=== PATIENT | male | born 1970 | race African-American/Black ===

== ENCOUNTER 2017-02-09 18:52 | Emergency (ER) | payer BC, MEDICAID ==
--- NOTE | 2017-02-09 20:28 | ER Document Report ---
HPI - HPI Onset/Duration: Gradual Quality of pain: Achy Pain Level: 5 Context: 46 yo male c/o dental pain to right upper and lower teeth x several days. pt reports he has a dental appointment at 9am tomorrow morning, but is very uncomfortable right now and worried he wont be able to rest tonight. no gum swelling, no fever, no facial swelling Associated Symptoms: None Exacerbated by: Food Relieved by: Denies Similar symptoms previously: Yes Recently seen / treated by doctor: No - has appointment - ROS Systems Reviewed and Negative: Yes All other systems reviewed and negative - DERM Skin Color: Normal, [place] Past Medical History - General Information source: Patient - Social History Smoking Status: Smoker,Current Status Unk Frequency of alcohol use: None Drug Abuse: None Lives with: Alone Family History: Reviewed & Not Pertinent Endocrine Medical History: Reports: Hx Diabetes Mellitus Type 2 Renal/ Medical History: Denies: Hx Peritoneal Dialysis - Immunizations Hx Diphtheria, Pertussis, Tetanus Vaccination: Yes Vertical Provider Document - CONSTITUTIONAL Agree With Documented VS: Yes Exam Limitations: No Limitations General Appearance: WD/WN, No Apparent Distress - INFECTION CONTROL TRAVEL OUTSIDE OF THE [place] IN LAST 30 DAYS: No - HEENT HEENT: Atraumatic, PERRLA Notes: extensive decay, no gingival edema noted - NECK Neck: Normal Inspection, Supple - RESPIRATORY Respiratory: Breath Sounds Normal, No Respiratory Distress O2 Sat by Pulse Oximetry: 98 - CARDIOVASCULAR Cardiovascular: Regular Rate, Regular Rhythm - NEURO Level of Consciousness: Awake, Alert, Appropriate Course - Vital Signs Vital signs: Temp Pulse Resp BP Pulse Ox 98.1 F 79 16 151/93 H 98 02/09/17 18:55 02/09/17 18:55 02/09/17 18:55 02/09/17 18:55 02/09/17 18:55 Discharge - Discharge Clinical Impression: Pain, dental Condition: Stable Disposition: HOME, SELF-CARE Instructions: Toothache ([facility]), Oral Narcotic Medication ([facility]) Additional Instructions: Take meds as prescribed - Dispense Pack Vicodin - Follow up with dental tomorrow as scheduled
[2017-02-09 20:55] VITALS: BP 148/80
[2017-02-09] MEDS ORDERED: HYDROCODONE/ACETAMINOPHEN 5-325 MG 6 TAB/DSPK PO SCH (22:00)
== END 2017-02-09 20:50 | disposition home or self-care (01) ==
LOC: ER 18:52
DX: K08.9 Disorder of teeth and supporting structures, unspecified (principal); E11.9 Type 2 diabetes mellitus without complications
CPT/HCPCS: 99282

== ENCOUNTER 2017-09-15 03:17 | Observation (INO) | payer BC ==
[2017-09-15] MEDS ORDERED: ASPIRIN 325 MG TABLET PO ONE (03:36)
[2017-09-15] MEDS ORDERED: ASPIRIN 81 MG TABLET, CHEWABLE PO ONE (03:45)
--- NOTE | 2017-09-15 03:45 | ER Document Report ---
ED Cardiac - General Chief Complaint: Chest Pain Stated Complaint: CHEST PAIN,ARM NUMBNESS Time Seen by Provider: 09/15/17 03:45 Mode of Arrival: Ambulatory Information source: Patient Notes: 47-year-old male had to leave work because he was concerned about the constant heavy dull ache left sided chest pain that he states is above the bones. Onset 299 when he got up to get ready for work. Also has left mandible pain, left bicep pain. He thought at first that it was due to the heavy lifting at work. TRAVEL OUTSIDE OF THE [place] IN LAST 30 DAYS: No - Related Data Allergies/Adverse Reactions: No Known Allergies Allergy (Unverified 01/19/14 15:10) Past Medical History - General Information source: Patient - Social History Smoking Status: Never Smoker Frequency of alcohol use: None Drug Abuse: None Lives with: Spouse/Significant other Family History: Reviewed & Not Pertinent Endocrine Medical History: Reports: Hx Diabetes Mellitus Type 2 Renal/ Medical History: Denies: Hx Peritoneal Dialysis Surgical Hx: Negative - Immunizations Hx Diphtheria, Pertussis, Tetanus Vaccination: Yes Review of Systems - Review of Systems Constitutional: No symptoms reported EENT: No symptoms reported Cardiovascular: See HPI Respiratory: No symptoms reported Gastrointestinal: No symptoms reported Genitourinary: No symptoms reported Male Genitourinary: No symptoms reported Musculoskeletal: No symptoms reported Skin: No symptoms reported Hematologic/Lymphatic: No symptoms reported Neurological/Psychological: No symptoms reported Physical Exam - Vital signs Vitals: Temp Pulse Resp BP Pulse Ox 97.9 F 94 18 141/91 H 98 09/15/17 03:17 09/15/17 03:17 09/15/17 03:17 09/15/17 03:17 09/15/17 03:17 Interpretation: Normal - General General appearance: Appears well, Alert In distress: None - HEENT Head: Normocephalic, Atraumatic Eyes: Normal Conjunctiva: Normal Pupils: PERRL Mucous membranes: Normal Pharynx: Normal Neck: Supple. No: Lymphadenopathy - Respiratory Respiratory status: No respiratory distress Chest status: Nontender Breath sounds: Normal Chest palpation: Normal - Cardiovascular Rhythm: Regular Heart sounds: Normal auscultation Murmur: No - Abdominal Inspection: Normal Distension: No distension Bowel sounds: Normal Tenderness: Nontender Organomegaly: No organomegaly - Back Back: Normal, Nontender. No: CVA tenderness - Extremities General upper extremity: Normal inspection, Nontender, Normal color, Normal ROM , Normal temperature General lower extremity: Normal inspection, Nontender, Normal color, Normal ROM , Normal temperature, Normal weight bearing. No: Apurva's sign - Neurological Neuro grossly intact: Yes Cognition: Normal Orientation: AAOx4 [place] Coma Scale Eye Opening: Spontaneous [place] Coma Scale Verbal: Oriented [place] Coma Scale Motor: Obeys Commands [place] Coma Scale Total: 15 Speech: Normal Motor strength normal: LUE, RUE, LLE, RLE Sensory: Normal - Psychological Associated symptoms: Normal affect, Normal mood - Skin Skin Temperature: Warm Skin Moisture: Dry Skin Color: Normal Skin irregularity: negative: Rash Course - Re-evaluation Re-evalutation: 09/15/17 05:[address] franz who rec. nitroglycerin to see if it stops the pain, would cause more concern for ACS wale. since diabetic. first troponin negative. chest xray negative. 09/15/17 05:30 1 NTG resolved the pain completely, dr. shahid will admit to telemetry observation for chest pain rule out. - Vital Signs Vital signs: Temp Pulse Resp BP Pulse Ox 97.9 F 94 18 142/100 H 98 09/15/17 03:17 09/15/17 03:17 09/15/17 04:31 09/15/17 04:31 09/15/17 04:31 - Laboratory Result Diagrams: 09/15/17 03:50 09/15/17 03:50 Laboratory results interpreted by me: 09/15/17 09/15/17 03:50 03:50 RBC 5.76 H Hgb 13.0 L MCV 70 L MCH 22.6 L Glucose 222 H Creatine Kinase 256 H - EKG Interpretation by Ny EKG shows normal: Sinus rhythm Rate: Normal Discharge - Discharge Clinical Impression: chest pain Diabetes Qualifiers: Diabetes mellitus type: type 2 Diabetes mellitus complication status: with unspecified complications Diabetes mellitus long-term insulin use: without long-term use Qualified Code(s): E11.8 - Type 2 diabetes mellitus with unspecified complications Hypertension Qualifiers: Hypertension type: unspecified Qualified Code(s): I10 - Essential (primary) hypertension Condition: Good Disposition: ADMITTED OBSERVATION Admitting Provider: Hospitalist Unit Admitted: Telemetry
[2017-09-15 03:59] LABS: ABSOLUTE EOSINOPHILS # (AUTO) 0.2 10^3/uL (0.0-0.6); ABSOLUTE LYMPHOCYTES (AUTO) 2.7 10^3/uL (0.5-4.7); ABSOLUTE MONOCYTES (AUTO) 0.4 10^3/uL (0.1-1.4); ABSOLUTE NEUT (AUTO) 4.3 10^3/uL (1.7-8.2); BASOPHILS % (AUTO) 0.6 % (0-2); HEMATOCRIT 40.5 % (37.9-51.0); HGB HCT DIFFERENCE -1.5; LYMPHOCYTES % (AUTO) 34.9 % (13-45); MEAN CORPUSCULAR HEMOGLOBIN 22.6 pg (27.0-33.4); MEAN CORPUSCULAR HGB CONC 32.1 g/dL (32.0-36.0); MEAN CORPUSCULAR VOLUME 70 fl (80-97); MONOCYTES % (AUTO) 5.9 % (3-13); RED BLOOD COUNT 5.76 10^6/uL (4.35-5.55); RED CELL DISTRIBUTION WIDTH 13.2 % (11.5-14.0); SEGMENTED NEUTROPHILS % (AUTO) 56.6 % (42-78); WHITE BLOOD COUNT 7.6 10^3/uL (4.0-10.5)
--- NOTE | 2017-09-15 04:03 | RADIOLOGY REPORT (SQ) ---
EXAM DESCRIPTION: CHEST SINGLE VIEW COMPLETED DATE/TIME: 09/15/2017 3:55 am REASON FOR STUDY: chest pain COMPARISON: None. EXAM PARAMETERS: NUMBER OF VIEWS: One view. TECHNIQUE: Single frontal radiographic view of the chest acquired. RADIATION DOSE: NA LIMITATIONS: None. FINDINGS: LUNGS AND PLEURA: No consolidation, pneumothorax or pleural effusion. MEDIASTINUM AND HILAR STRUCTURES: No masses. Contour normal. HEART AND VASCULAR STRUCTURES: Heart normal in size. Normal vasculature. BONES: No acute findings. HARDWARE: None in the chest. IMPRESSION: No acute radiographic finding in the chest. TECHNICAL DOCUMENTATION: JOB ID: [id number] 2010 [employer] All Rights Reserved
[2017-09-15 04:17] LABS: ALANINE AMINOTRANSFERASE 39 U/L (21-72); ALBUMIN 4.3 g/dL (3.5-5.0); ALKALINE PHOSPHATASE 105 U/L (38-126); ANION GAP 15 (5-19); ASPARTATE AMINO TRANSFERASE 17 U/L (17-59); BILIRUBIN,DIRECT 0.3 mg/dL (0.0-0.4); BILIRUBIN,TOTAL 0.6 mg/dL (0.2-1.3); BLOOD UREA NITROGEN 18 mg/dL (7-20); CALCIUM 9.6 mg/dL (8.4-10.2); CARBON DIOXIDE 22 mmol/L (22-30); CHLORIDE 103 mmol/L (98-107); CREATINE KINASE 256 U/L (55-170); CREATININE RESULT 0.61 mg/dL (0.52-1.25); GLUCOSE 222 mg/dL (75-110); POTASSIUM 4.4 mmol/L (3.6-5.0); SODIUM 140.4 mmol/L (137-145); TOTAL PROTEIN 7.1 g/dL (6.3-8.2)
[2017-09-15 04:29] LABS: CREATINE KINASE MB 2.49 ng/mL (<4.55)
[2017-09-15 04:30] LABS: TROPONIN I < 0.012 ng/mL
[2017-09-15] MEDS ORDERED: NITROGLYCERIN 0.4 MG/TAB 25 TAB/BOTTLE SL PRN ×2 (04:59→06:09)
[2017-09-15] MEDS ORDERED: MAG HYDROX/AL HYDROX/SIMETH SUSP 30 ML UDCUP PO PRN ×2 (06:09→15:30)
[2017-09-15] MEDS ORDERED: MORPHINE SULFATE 10 MG/ML INJ IV PRN (06:09)
[2017-09-15] MEDS ORDERED: ONDANSETRON HCL INJ/PF 4 MG/2 ML SDV IV PRN ×2 (06:09→15:30)
[2017-09-15] MEDS ORDERED: LANSOPRAZOLE 15 MG TAB.RAP.DR PO ONE (06:09)
[2017-09-15] MEDS ORDERED: GLYBURIDE 5 MG TABLET PO ONE (06:30)
[2017-09-15] MEDS ORDERED: METFORMIN HCL 500 MG TABLET PO ONE (07:00)
--- NOTE | 2017-09-15 07:22 | PDOC H&P ---
History of Present Illness Admission Date/PCP: 09/15/17 05:58 History of Present Illness: SHELLEY BARNES JR is a 47 year old male with past medical history of diabetes mellitus type 2 and hypertension who presents to the emergency department with complaints of chest pain for 24 hours. Patient reports that at approximately 315 on 09/14/2017 he woke for his normal job and felt pressure in his left upper chest radiating to his left arm and jaw. He reports that this pain never went away but it did have a sensation of almost like indigestion. He reports he took some aspirin throughout the day. Nothing seemed to make this pain better or worse. He denied any associated shortness of breath, nausea, vomiting , diaphoresis, or metallic taste in his mouth. Patient reports that he has not had his lisinopril or glyburide for approximately 1 month. There is a questionable improvement with nitroglycerin, but he reports that his pain was actually slightly improved before receiving the nitroglycerin. He is referred to the hospitalist service for evaluation of his chest pain. Past Medical History Cardiac Medical History: Reports: Hypertension Endocrine Medical History: Reports: Diabetes Mellitus Type 2 Past Surgical History Past Surgical History: Reports: None Social History Lives with: Spouse/Significant other Smoking Status: Never Smoker Frequency of Alcohol Use: None Hx Recreational Drug Use: No Hx Prescription Drug Abuse: No - Advance Directive Resuscitation Status: Full Code Surrogate healthcare decision maker:: Laxmi Barnes, Family History Family History: DM, Hypertension, Malignancy Parental Family History Reviewed: Yes Children Family History Reviewed: Yes Sibling(s) Family History Reviewed.: Yes Medication/Allergy Home Medications: Glyburide [Diabeta 5 mg Tablet] 2.5 mg PO BID #30 tablet 01/19/14 Glyburide [Diabeta 5 mg Tablet] 5 mg PO [id number] 01/19/14 Glyburide [Diabeta 5 mg Tablet] 7.5 mg PO QHS 01/19/14 Metformin HCl [Glucophage] 1,000 mg PO BID 01/19/14 Metformin HCl [Glucophage] 1,000 mg PO BID #60 tablet 01/19/14 Allergies/Adverse Reactions: No Known Allergies Allergy (Unverified 01/19/14 15:10) Review of Systems Constitutional: ABSENT: chills, fever(s), headache(s), weight gain, weight loss Eyes: ABSENT: visual disturbances Ears: ABSENT: hearing changes Nose, Mouth, and Throat: PRESENT: mouth pain - Reports toothache on left lower molar Cardiovascular: PRESENT: as per HPI, chest pain. ABSENT: dyspnea on exertion, edema, orthropnea, palpitations Respiratory: ABSENT: cough, dyspnea, hemoptysis, sputum Gastrointestinal: ABSENT: abdominal pain, constipation, diarrhea, hematemesis, hematochezia, melena, nausea, vomiting Genitourinary: ABSENT: dysuria, hematuria Musculoskeletal: ABSENT: joint swelling Integumentary: ABSENT: rash, wounds Neurological: ABSENT: abnormal gait, abnormal speech, confusion, dizziness, focal weakness, syncope Psychiatric: ABSENT: anxiety, depression, homidical ideation, suicidal ideation Endocrine: ABSENT: cold intolerance, heat intolerance, polydipsia, polyuria Hematologic/Lymphatic: ABSENT: easy bleeding, easy bruising Physical Exam Vital Signs: Temp Pulse Resp BP Pulse Ox 97.9 F 94 12 136/104 H 98 09/15/17 03:17 09/15/17 03:17 09/15/17 06:01 09/15/17 06:00 09/15/17 06:01 General appearance: PRESENT: no acute distress, well-developed, well-nourished Head exam: PRESENT: atraumatic, normocephalic Eye exam: PRESENT: conjunctiva pink, EOMI, PERRLA. ABSENT: scleral icterus Ear exam: PRESENT: normal external ear exam Mouth exam: PRESENT: moist, tongue midline, other - Left submandibular adenopathy Teeth exam: PRESENT: dental caries Neck exam: ABSENT: carotid bruit, JVD, lymphadenopathy, thyromegaly Respiratory exam: PRESENT: clear to auscultation mj, symmetrical, unlabored. ABSENT: accessory muscle use, rales, rhonchi, tachypnea, wheezes Cardiovascular exam: PRESENT: RRR, +S1, +S2. ABSENT: diastolic murmur, gallop, rubs, systolic murmur Pulses: PRESENT: normal dorsalis pedis pul Vascular exam: PRESENT: normal capillary refill GI/Abdominal exam: PRESENT: normal bowel sounds, soft. ABSENT: distended, firm , guarding, mass, Silverman's sign, organolmegaly, rebound, rigid, tenderness Rectal exam: PRESENT: deferred Extremities exam: PRESENT: full ROM. ABSENT: calf tenderness, clubbing, pedal edema Neurological exam: PRESENT: alert, awake, oriented to person, oriented to place , oriented to time, oriented to situation, CN II-XII grossly intact. ABSENT: motor sensory deficit Psychiatric exam: PRESENT: appropriate affect, normal mood. ABSENT: homicidal ideation, suicidal ideation Skin exam: PRESENT: dry, intact, warm. ABSENT: cyanosis, rash Results Laboratory Results: 09/15/17 09/15/17 09/15/17 03:50 03:50 03:50 WBC 7.6 Hgb 13.0 L Hct 40.5 MCV 70 L Plt Count 193 Sodium 140.4 Potassium 4.4 Chloride 103 Carbon Dioxide 22 Anion Gap 15 BUN 18 Creatinine 0.61 Glucose 222 H Calcium 9.6 Total Bilirubin 0.6 Direct Bilirubin 0.3 AST 17 ALT 39 Alkaline Phosphatase 105 Creatine Kinase 256 H Troponin I < 0.012 Total Protein 7.1 Albumin 4.3 Impressions: Chest X-Ray 09/15/17 03:45 IMPRESSION: No acute radiographic finding in the chest. Status: Imported from PACS Assessment & Plan - Diagnosis (1) Chest pain Qualifiers: Chest pain type: unspecified Qualified Code(s): R07.9 - Chest pain, unspecified Is this a current diagnosis for this admission?: Yes Plan: Place patient on telemetry and rule out for acute coronary syndrome. Number metoprolol, aspirin, Lipitor, oxygen, morphine, and nitroglycerin. Serial cardiac enzymes. Obtain stress test. Excellent check FLP and A1c. (2) Dental abscess Is this a current diagnosis for this admission?: Yes Plan: Start patient on Augmentin (3) Diabetes Qualifiers: Diabetes mellitus type: type 2 Diabetes mellitus complication status: with unspecified complications Diabetes mellitus halfway insulin use: without salvage determiner use Qualified Code(s): E11.8 - Type 2 diabetes mellitus with unspecified complications Is this a current diagnosis for this admission?: Yes Plan: Check hemoglobin A1c and start on metformin and glyburide (4) Hypertension Qualifiers: Hypertension type: unspecified Qualified Code(s): I10 - Essential (primary ) hypertension Is this a current diagnosis for this admission?: Yes Plan: Place patient on Cozaar. (5) Obesity (BMI 30.0-34.9) Is this a current diagnosis for this admission?: Yes - Time Time Spent: 30 to 50 Minutes Medications reviewed and adjusted accordingly: Yes Anticipated discharge: Home Within: within 24 hours, within 48 hours - Inpatient Certification Based on my medical assessment, after consideration of the patient's comorbidities, presenting symptoms, or acuity I expect that the services needed warrant INPATIENT care.: No I certify that my determination is in accordance with my understanding of Medicare's requirements for reasonable and necessary INPATIENT services [42 CFR 412.3e].: No Post Hospital Care: D/C Strategy Manager Documentation
--- NOTE | 2017-09-15 07:57 | EKG REPORT ---
SEVERITY:- ABNORMAL ECG - SINUS RHYTHM SUPRAVENTRICULAR BIGEMINY : Confirmed by: Marquez Sapp MD 15-Sep-2017 07:56:41
[2017-09-15] MEDS ORDERED: ASPIRIN 325 MG TABLET, ENT COATED PO SCH (10:00)
[2017-09-15] MEDS: LOSARTAN POTASSIUM 25 MG TABLET PO SCH ×2 (10:25→22:50)
[2017-09-15] MEDS: METOPROLOL TARTRATE 25 MG TABLET PO SCH ×2 (10:26→22:49)
[2017-09-15] MEDS: AMOXICILLIN TR/POT CLAVULANATE 500-125 MG TAB PO SCH ×2 (13:35→22:48)
--- NOTE | 2017-09-15 13:53 | PROGRESS NOTE E ---
Progress Note NAME: SHELLEY BARNES : 1970 AGE: 47Y DATE: 09/15/2017 ROOM: ED15 SUBJECTIVE: The patient is currently lying in bed. He states that he feels better than when he came in. He stated that he had a brief episode of chest pain which did spontaneously resolve. The patient denies any nausea, vomiting or diarrhea, no shortness of breath, no fever or chills. The patient does not voice any other concerns at this time. REVIEW OF SYSTEMS: Rest of review of systems is negative. MEDICATIONS: Medications have been reviewed. OBJECTIVE: GENERAL: The patient is a 47-year-old male who is awake and alert. He is oriented to person, place, time and situation. He is verbal and conversational and does not to appear to be in any acute distress. VITAL SIGNS: Temperature is 97.9, pulse 90, respirations 16, blood pressure 130/91, oxygen saturation is 97% on room air. SKIN: Warm and dry. No rashes, not diaphoretic. HEENT: Pupils are equal, round, reactive to light and accommodation. Conjunctivae pink. No JVP. No stridor is appreciated. The patient does have some left submandibular adenopathy, although the patient is maintaining his own airway, no glottal edema. CVS: Heart is regular. There is no murmur or rub. CHEST: Clear, symmetrical and unlabored. ABDOMEN: Soft, nontender and nondistended. BACK: No CVA tenderness or sacral edema. EXTREMITIES: No clubbing, cyanosis or edema. PSYCHIATRIC: Appropriate affect, pleasant mood. DIAGNOSTIC DATA: Lab values are as follows: Hematology obtained on 09/15/2017: WBC is 7.6, hemoglobin 13.0, hematocrit 40.5, and platelet count is 195,000. Chemistries obtained on 09/15/2016: Iron is 58, TIBC is 327, percent saturation is 18, ferritin is 63.7, B12 is 99, folate is 14.9. IMPRESSION AND PLAN: 1. CHEST PAIN. Given the patient's risk factors, will observe in continuous telemetry, obtain serial cardiac enzymes and continue current meds and follow. 2. DENTAL ABSCESS. Will continue Augmentin. The patient is maintaining his own airway. No evidence of [place] angina. Will follow. 3. DIABETES MELLITUS TYPE 2. Will continue metformin, Glyburide and sliding scale coverage and follow. 4. HYPERTENSION. Will continue the patient's home medications. DISPOSITION: The patient is a FULL CODE. Pending the patient's symptomatology and diagnostic findings, will re-evaluate in the a.m. TIME SPENT: On this followup including assessment, plan, physical examination, patient education, and family meeting is 35 minutes. DICTATING PHYSICIAN: CRISTO ENNIS NP [id number] PHY#: [id number] ID: [id number] JOB#: [id number] ACCT: [id number] cc: >
[2017-09-15] MEDS ORDERED: INFLUENZA ADLT QUAD (36MOS+) 2017-18 VAC 0.5 ML SYR IM PRN (15:08)
[2017-09-15] MEDS: METFORMIN HCL 500 MG TABLET PO SCH (17:21)
[2017-09-15] MEDS: GLYBURIDE 5 MG TABLET PO SCH (17:21)
[2017-09-15] MEDS ORDERED: ATORVASTATIN CALCIUM 40 MG TABLET PO SCH (22:00)
[2017-09-16] MEDS: AMOXICILLIN TR/POT CLAVULANATE 500-125 MG TAB PO SCH ×2 (05:35→13:16)
[2017-09-16 05:49] LABS: CHOLESTEROL 159.26 mg/dL (0-200); Direct HDL 48 mg/dL (>40); TRIGLYCERIDES 119 mg/dL (<150)
[2017-09-16 06:00] LABS: DIRECT LDL 97 mg/dL (<100)
[2017-09-16] MEDS: METFORMIN HCL 500 MG TABLET PO SCH (08:03)
[2017-09-16] MEDS: GLYBURIDE 5 MG TABLET PO SCH (08:04)
[2017-09-16] MEDS ORDERED: ASPIRIN 325 MG TABLET, ENT COATED PO SCH (10:00)
[2017-09-16] MEDS: METOPROLOL TARTRATE 25 MG TABLET PO SCH (10:48)
[2017-09-16] MEDS: LOSARTAN POTASSIUM 25 MG TABLET PO SCH (10:49)
[2017-09-16] MEDS ORDERED: REGADENOSON INJ 0.4 MG/5 ML DISP.SYRIN IV ONE (11:40)
--- NOTE | 2017-09-16 13:17 | PDOC DISCHARGE SUMMARY ---
General - Admit/Disc Date/PCP Admission Date/Primary Care Provider: 09/15/17 05:58 Discharge Date: 09/16/17 - Discharge Diagnosis (1) Chest pain Is this a current diagnosis for this admission?: Yes Summary: This is a 47-year-old male who came to the emergency room with a dull achy substernal chest pain radiating down to his left arm. He underwent a stress test today that was negative per Dr. Storm. He also was found to have an elevated hemoglobin A1c of 9.6. Patient states he was in the process of changing medical providers again and he ran out of his lisinopril and glyburide for greater than 1 month. Troponins were negative. Past medical history includes diabetes type 2, hypertension, glucose mildly elevated during his hospitalization requiring some sliding scale insulin. Patient was placed on telemetry and acute coronary syndrome was ruled out. I have written him a prescription for 30 day supply of all of his medications which include metoprolol, aspirin, Lipitor, metformin, glyburide. - Additional Information Resuscitation Status: Full Code Discharge Diet: Cardiac Discharge Activity: Activity As Tolerated Home Medications: Aspirin [Ecotrin 325 mg EC Tablet] 325 mg PO DAILY #30 tab 09/16/17 Atorvastatin Calcium [Lipitor 40 mg Tablet] 40 mg PO QHS #30 tablet 09/16/17 Flu Vacc [id number] 36Mos Up/Pf [Fluzone Adlt Quad 2703-2520 Vac 0.5 ml Syr] 0.5 ml IM .DISCHARGE PRN #1 disp.syrin 09/16/17 Glyburide [Diabeta 5 mg Tablet] 5 mg PO BIDBS 30 Days #60 tablet 09/16/17 Losartan Potassium [Cozaar 25 mg Tablet] 25 mg PO Q12 #60 tablet 09/16/17 Metformin HCl [Glucophage 500 mg Tablet] 1,000 mg PO BIDACBS #60 tablet Metoprolol Tartrate [Lopressor 25 mg Tablet] 12.5 mg PO Q12 30 Days #60 tablet 09/16/17 History of Present Illness History of Present Illness: SHELLEY BARNES JR is a 47 year old male Physical Exam Vital Signs: Temp Pulse Resp BP Pulse Ox 97.8 F 88 17 119/72 94 09/16/17 04:03 09/16/17 07:00 09/16/17 04:03 09/16/17 04:03 09/16/17 04:03 Intake & Output 09/15/17 09/16/17 09/17/17 06:59 06:59 06:59 Intake Total 1500 Balance 1500 Weight 97.4 kg General appearance: PRESENT: no acute distress Head exam: PRESENT: atraumatic Eye exam: PRESENT: PERRLA Ear exam: PRESENT: normal external ear exam Mouth exam: PRESENT: moist, tongue midline Neck exam: ABSENT: carotid bruit, JVD, lymphadenopathy, thyromegaly Respiratory exam: PRESENT: clear to auscultation mj. ABSENT: rales, rhonchi, wheezes Cardiovascular exam: PRESENT: RRR. ABSENT: diastolic murmur, rubs, systolic murmur Pulses: PRESENT: normal dorsalis pedis pul Vascular exam: PRESENT: normal capillary refill GI/Abdominal exam: PRESENT: normal bowel sounds, soft. ABSENT: distended, guarding, mass, organolmegaly, rebound, tenderness Rectal exam: PRESENT: deferred Extremities exam: PRESENT: full ROM. ABSENT: calf tenderness, clubbing, pedal edema Neurological exam: PRESENT: alert, awake, oriented to person, oriented to place , oriented to time, oriented to situation, CN II-XII grossly intact. ABSENT: motor sensory deficit Psychiatric exam: PRESENT: appropriate affect, normal mood. ABSENT: homicidal ideation, suicidal ideation Skin exam: PRESENT: dry, intact, warm. ABSENT: cyanosis, rash Results Laboratory Results: 09/15/17 09/16/17 07:15 04:21 Transferrin 242 Triglycerides 119 Cholesterol 159.26 LDL Cholesterol Direct 97 VLDL Cholesterol 24.0 HDL Cholesterol 48 09/15/17 09/15/17 09/15/17 07:15 12:45 19:05 Troponin I < 0.012 < 0.012 < 0.012 Impressions: Chest X-Ray 09/15/17 03:45 IMPRESSION: No acute radiographic finding in the chest. Plan Time Spent: Less than 30 Minutes
[2017-09-16 13:18] VITALS: BP 120/81
--- NOTE | 2017-09-17 16:00 | DRAGON STRESS TEST REPORT ---
Intravenous Lexiscan Cardiolite stress test using single photon emmision computerized tomography. Date of procedure: 09/16/2017.Ordering Provider: Dr. Zapata. Patient's status: In Patient Indication: Chest pain. Coronary risk factors: Age, diabetes mellitus, hypertension, and dyslipidemia. Resting EKG: Sinus Rhythm. Within normal limits Stress EKG: No changes of ischemia. The patient had no chest pain or discomfort, and there were no arrhythmias seen. Reason for termination: Protocol. Conclusions: Normal EKG and hemodynamic response to IV Lexiscan. Nuclear data: At rest the patient was given 14.96 millicuries of technetium 99m sestamibi injected intravenously. As per protocol rest non gated SPECT images were obtained. Subsequently the patient was given intravenous Lexiscan at a dose of 0.4 mg in 5 mL intravenously, followed by flush with normal saline. Subsequently the stress dose of 42.2 millicuries of technetium 99m sestamibi was injected intravenously. As per protocol stress gated images were obtained. Nuclear interpretation: Review of images showed that there was a mild perfusion defect involving the basal and mid inferior jessica in both the rest and stress images. This area the this area of the basal and mid inferior wall had normal motion contraction and thickening. Hence this is soft tissue attenuation artifact. The rest of the segments of the myocardium had normal perfusion at rest, and normal perfusion post stress with IV Lexiscan. All segments of the myocardium had normal motion, contraction, and thickening by gated study. T. I D. ratio was normal at 1.00. Computer read rest, and stress left ventricular ejection fraction were 44 %, and 43 %, respectively. Visually both the stress and rest ejection fractions were normal, and greater than 55%. Conclusion: 1. There is no scintigraphic evidence of Lexiscan induced myocardial ischemia. 2. There is no scintigraphic evidence of myocardial infarction/scar. 3. There is a mild soft tissue attenuation artifact involving the basal and mid inferior jessica. Recommendations: Aggressive risk factor modification, and treating the underlying co- morbidities. MTDD
== END 2017-09-16 14:07 | disposition home or self-care (01) ==
LOC: ER 03:17 → EH 05:58 → 5 14:15
PROVIDERS: ADMIT Family Medicine; ATTEND Family Medicine
PROC: 3E0234Z Introduction of Serum, Toxoid and Vaccine into Muscle, Percutaneous Approach (ICD-10-PCS; principal; 2017-09-16)
DX: R07.2 Precordial pain (principal); E11.65 Type 2 diabetes mellitus with hyperglycemia; I10 Essential (primary) hypertension; K04.7 Periapical abscess without sinus; E66.9 Obesity, unspecified; R20.0 Anesthesia of skin; M79.1 Myalgia; Z82.49 Family history of ischemic heart disease and other diseases of the circulatory system; Z83.3 Family history of diabetes mellitus; Z68.31 Body mass index [BMI] 31.0-31.9, adult; Z23 Encounter for immunization
CPT/HCPCS: 93005; 99285; 36415 ×2; 82553; 82607; 82550; 82728; 82746; 83540; 83550; 85025; 85045; 80053; 84484; 84466; 83036; 80061; 93017 ×2; 71010; 78452; 90686; 93010; G0378 ×3; A9500; J2785; J3490 ×4; Q9969

== ENCOUNTER 2020-06-08 04:01 | Emergency (ER) | payer BC ==
[2020-06-08] MEDS ORDERED: FAMOTIDINE INJ/PF 20 MG/2 ML SDV IV ONE (05:14)
[2020-06-08] MEDS ORDERED: DIPHENHYDRAMINE HCL 50 MG/ML VIAL IV ONE (05:14)
[2020-06-08] MEDS ORDERED: METHYLPREDNISOLONE INJ 125 MG/2 ML SDV IV ONE (05:14)
--- NOTE | 2020-06-08 05:38 | ER Document Report ---
Entered by MINISTERIO BUCIO SCRIBE 06/08/20 0519 Acting as scribe for:PJ WATKINS IV, MD ED Allergic Reaction - General Chief Complaint: Allergic Reaction Stated Complaint: ALLERGIC REACTION//THROAT SWELLING Primary Care Provider: AURELIA GARCIA MD [HONORARY] - Follow up as needed Mode of Arrival: Ambulatory Information source: Patient Notes: This 49 year old male patient with no known allergies presents to the ED today with complaints of an allergic reaction that started around 2100 yesterday evening. Patient states that he ran out of his usual Free and Clear laundry detergent and used Gain instead. He reports that his symptoms initially started with an itchy rash to arms, abdomen, and neck which he states he managed with a topical ointment. He states that around 2200, he took a Benadryl tablet and then developed throat swelling and pain x30 minutes later. Denies shortness of breath or cough. . He mentions that his daughter later called and told him that she had a similar reaction (rash) after using the Gain detergent. TRAVEL OUTSIDE OF THE [place] IN LAST 30 DAYS: No - Related Data Allergies/Adverse Reactions: No Known Allergies Allergy (Unverified 01/19/14 15:10) Home Medications: metformin, lisinopril, Past Medical History - General Information source: Patient - Social History Smoking Status: Unknown if Ever Smoked Smoking Education Provided: No Lives with: Spouse/Significant other Family History: Reviewed & Not Pertinent, DM, Hypertension, Malignancy Patient has suicidal ideation: No Patient has homicidal ideation: No - Past Medical History Cardiac Medical History: Reports: Hx Hypertension Endocrine Medical History: Reports: Hx Diabetes Mellitus Type 2 - Immunizations Hx Diphtheria, Pertussis, Tetanus Vaccination: Yes Review of Systems - Review of Systems Constitutional: No symptoms reported EENT: See HPI, Throat pain, Throat swelling Cardiovascular: No symptoms reported Respiratory: See HPI. denies: Short of breath Gastrointestinal: No symptoms reported Genitourinary: No symptoms reported Male Genitourinary: No symptoms reported Musculoskeletal: No symptoms reported Skin: See HPI, Rash Hematologic/Lymphatic: No symptoms reported Neurological/Psychological: No symptoms reported -: Yes All other systems reviewed and negative Physical Exam - Vital signs Vitals: Temp Pulse Resp BP Pulse Ox 98.4 F 81 20 109/76 98 06/08/20 04:05 06/08/20 04:05 06/08/20 04:05 06/08/20 04:05 06/08/20 04:05 Interpretation: Normal - General General appearance: Alert - Talking in full sentences In distress: None - HEENT Head: Normocephalic, Atraumatic Eyes: Normal Pupils: PERRL Pharynx: Erythema - Bilateral tonsillar erythema and edema. No: Uvular edema - or deviation Neck: No: Normal - Welts noted to posterior neck - Respiratory Respiratory status: No respiratory distress Chest status: Nontender Breath sounds: Normal. No: Stridor Chest palpation: Normal - Cardiovascular Rhythm: Regular Heart sounds: Normal auscultation Murmur: No Friction rub: No Gallop: None auscultated - Abdominal Inspection: Other - Welts noted to lower abdomen Distension: No distension Bowel sounds: Normal Tenderness: Nontender - Abdomen soft Organomegaly: No organomegaly - Back Back: Normal, Nontender - Extremities General lower extremity: Normal inspection Hand: Other - Erythema noted to palms of both hands - Neurological Neuro grossly intact: Yes Orientation: AAOx4 [place] Coma Scale Eye Opening: Spontaneous Ro Coma Scale Verbal: Oriented [place] Coma Scale Motor: Obeys Commands Ro Coma Scale Total: 15 - Psychological Associated symptoms: Normal affect, Normal mood - Skin Skin irregularity: Erythema - palms of hands bilaterally, other - Welts noted to abdomen and posterior neck Course - Re-evaluation Re-evalutation: 06/08/20 06:00 Patient states he is feeling better. Patient states his throat feels less swollen, his itching is resolved as well. Patient's rash also appears to be resolving. All questions were answered prior to discharge. Emergency signs and symptoms, reasons to return to the emergency department discussed with patient. - Vital Signs Vital signs: Temp Pulse Resp BP Pulse Ox 98.4 F 81 21 H 120/91 H 100 06/08/20 04:05 06/08/20 04:05 06/08/20 05:14 06/08/20 05:13 06/08/20 05:14 Discharge - Discharge Clinical Impression: Acute allergic reaction Qualifiers: Encounter type: initial encounter Qualified Code(s): T78.40XA - Allergy, unspecified, initial encounter Condition: Stable Disposition: HOME, SELF-CARE Additional Instructions: Return to the Emergency Department without delay if any worse. HOME CARE INSTRUCTIONS & INFORMATION: Thank you for choosing us for your medical needs. We hope you're satisfied with the care you received. After you leave, you must properly care for your problem and, at the same time, observe its progress. Any condition can change. Some illnesses can change rapidly over hours or days. If your condition worsens, return to the Emergency Department or see your physician promptly. ABOUT YOUR X-RAYS AND EKG'S: If you had an EKG or X-rays taken, they have been read by the Emergency Physician. The X-rays and EKG's will also be read by a Radiologist or Generator Operator within 24 hours. If discrepancies are noted, you will be notified by telephone. Please be certain the ED has a correct telephone number & address where you can be reached. Also, realize that some fractures or abnormalities do not show up on initial X-rays. If your symptoms continue, see your physician. ABOUT YOUR LABORATORY TEST: If you had laboratory tests, the results have been reviewed by the Emergency Physician. Some test results (for example cultures) may not be available for several days. You will be contacted if any test result shows you need additional treatment. Please be certain the ED has a correct telephone number and address where you can be reached. ABOUT YOUR MEDICATIONS: You will receive instructions on how to take your medicine on the prescription label you receive. Additional information may be p rovided by the Pharmacy. If you have questions afterwards, call the ED for clarification or further instructions. Some prescribed medications may cause drowsiness. Do not perform tasks such as driving a car or operating machinery without consulting your Pharmacist. If you feel you need a refill of pain medication, your condition will need re-evaluation. Please do not call for a refill of any medication. ABOUT YOUR SIGNATURE: Signature of this document acknowledges to followin. Understanding that you received emergency treatment and that you may be released before al medical problems are known or treated. Please be certain the ED has a correct phone number & address where you can be reached. 2. Acknowledgement that you will arrange for follow-up care as recommended. 3. Authorization for the Emergency Physician to provide information to your follow-up Physician in order to maximize your care. AT ANY TIME, IF YOUR SYMPTOMS CHANGE SIGNIFICANTLY OR WORSEN OR YOU DEVELOP NEW SYMPTOMS, RETURN TO THE EMERGENCY DEPARTMENT IMMEDIATELY FOR RE-EVALUATION. OUR GOAL IS TO PROVIDE EXCELLENT MEDICAL CARE! WE HOPE THAT WE HAVE MET YOUR EXPECTATIONS DURING YOUR EMERGENCY DEPARTMENT VISIT AND THAT YOU FEEL YOU HAVE RECEIVED EXCELLENT CARE! Acute Allergic Reaction Your symptoms are due to an allergic reaction. Allergy can cause hives, swelling of the hands, feet, and face, hoarseness, and difficulty swallowing or breathing. It may be due to exposure to medication, animal dander, foods, i nfection, or insect bites. Medication is a common cause, even when prior use of this same medication caused no problems. Acute treatment may include adrenalin and antihistamines. Usually, the spec [facility] allergic agent can't be identified unless repeated episodes occur. Home treatment includes the following: (1) Stop any suspicious medications. This will be discussed with you. (2) Oral antihistamines for the next four to five days. Example, diphenhydramine (Benadryl) every four hours. (3) You may also use cimetidine (Tagamet), or famotidine (Pepcid) every four hours if diphenhydramine is not controlling itching and hives. (4) Avoid aspirin until the hives completely disappear. (5) Avoid hot baths or showers until the hives are completely gone. Call the doctor if faintness, difficulty swallowing, tightness in the chest, or wheezing occurs. Referrals: AURELIA GARCIA MD [HONORARY] - Follow up as needed I personally performed the services described in the documentation, reviewed and edited the documentation which was dictated to the scribe in my presence, and it accurately records my words and actions.
[2020-06-08 05:45] VITALS: BP 120/91
== END 2020-06-08 06:13 | disposition home or self-care (01) ==
LOC: ER 04:01
DX: T78.40XA Allergy, unspecified, initial encounter (principal); R21 Rash and other nonspecific skin eruption; R09.89 Other specified symptoms and signs involving the circulatory and respiratory systems; R07.0 Pain in throat; I10 Essential (primary) hypertension; E11.9 Type 2 diabetes mellitus without complications; Z79.84 Long term (current) use of oral hypoglycemic drugs; Z79.899 Other long term (current) drug therapy
CPT/HCPCS: 99284; 96374; 96375; J1200; J2930; S0028